=== PATIENT | male | born 1930 | race Caucasian/White ===

== ENCOUNTER → 2016-08-04 | Outpatient (CLI) | payer BC ==
[~2016-08-04] MED LIST: ACET325T96 PO; ASPI81TA28 PO; CLTP PO; ERGO1TAB12 PO; LDDP5 TD; METAMUCIL PO; POTA1080 PO; POTA10CA28 PO; ULT50X PO; VLTG EXT; WARF5TAB7 PO
== END | disposition home or self-care (01) ==
LOC: C.LAB 15:12
PROVIDERS: ATTEND Urology
DX: C61 Malignant neoplasm of prostate (principal)

== ENCOUNTER 2016-11-04 16:50 | Observation (INO) | payer BC ==
[~2016-11-04] VITALS: Ht 182.9 cm; Wt 87.5 kg
[~2016-11-04 16:50] MED LIST changes: -ACET325T96 PO; -ASPI81TA28 PO; -ERGO1TAB12 PO; +HYDROCODONE/ACETAMOPHEN 5/325MG TAB PO PRN; -LDDP5 TD; +MoRPHine SULFATE 2 MG/ML CARP IV PRN; +MoRPHine SULFATE 4 MG/ML 1 ML CARP\\VIAL IV PRN; -POTA10CA28 PO; +TRAMADOL HCL 50 MG TAB PO PRN; -ULT50X PO; -VLTG EXT
[2016-11-04] MEDS ORDERED: SODIUM CHLORIDE 0.9% 1000ML 1,000 ML IV STA (17:26)
[2016-11-04] MEDS ORDERED: FENTANYL CITRATE INJ 50 MCG/1 ML 2 ML VIAL IV STA (17:26)
[2016-11-04 18:08] LABS: BASO % 0.2 %; BASO ABS # 0.02 K/uL (0-0.2); COMPLETE YES; EOS % 3.1 %; IG% 0.2 %; LYMPH % 16.9 %; LYMPH ABS # 1.51 K/uL (1.2-3.4); MEAN CELL VOLUME 86.4 fL (80-100); MEAN CORPUSCULAR HEMOGLOBIN 29.4 pg (25-34); MEAN PLATELET VOLUME 9.4 fL (7.4-10.4); MONO % 10.1 %; NEUT % 69.5 %; PLATELET COUNT 171 K/uL (130-400); RED BLOOD COUNT 5.21 M/uL (4.7-6.1); WHITE BLOOD COUNT 8.95 K/uL (4.8-10.8)
[2016-11-04 18:09] LABS: URINE APPEARANCE CLEAR (CLEAR); URINE BILIRUBIN NEG (NEG); URINE COLOR YELLOW; URINE NITRITE NEG (NEG); URINE PH 6.5 (4.5-7.5); URINE SPECIFIC GRAVITY 1.023 (1.000-1.030); UROBILINOGEN NEG (NEG)
[2016-11-04 18:10] LABS: MANUAL MICROSCOPIC REQUIRED? NO; REVIEW REQ? NO
[2016-11-04 18:16] LABS: INR 1.8 (0.9-1.1); PARTIAL THROMBOPLASTIN RATIO 1.4
[2016-11-04] MEDS ORDERED: ASPI81TA28 PO (18:24)
[2016-11-04] MEDS ORDERED: POTA10CA28 PO (18:24)
[2016-11-04 18:25] LABS: ALT/SGPT 24 U/L (12-78); AST/SGOT 16 U/L (15-37); BLOOD UREA NITROGEN 19 mg/dl (7-18); CALCIUM 9.4 mg/dl (8.5-10.1); CARBON DIOXIDE 29 mmol/L (21-32); CHLORIDE 103 mmol/L (98-107); CREATININE 0.96 mg/dl (0.60-1.40); GLUCOSE 118 mg/dl (70-99); POTASSIUM 4.4 mmol/L (3.5-5.1); SODIUM 138 mmol/L (136-145)
[2016-11-04 18:29] LABS: ALKALINE PHOSPHATASE 98 U/L (45-117)
--- NOTE | 2016-11-04 18:33 | EMERGENCY ROOM VISIT NOTE ---
History First contact with patient: 17:22 Chief Complaint: FALL Stated Complaint: SWELLING TO LT HAND, LT SHOULDER HURTS- FALL History of Present Illness The patient is a 86 year old male who presents to the Emergency Room with complaints of fall from tripping 2 days ago. He complains of left wrist and left sided chest pain that has gotten worse since the fall. He also complains of feeling generally tired. He states he was bending over to fix something on his mower while mowing the lawn when he tripped and fell forward hitting the left side of his chest, and also hit his head. He denies loss of consciousness , headache, nausea/vomiting, hemoptysis, abdominal pain, vision changes, neck pain, numbness or weakness on one side of the body. The patient's states he has been his normal self and not confused. He does take Coumadin. He reports a mild cough, left-sided chest pain that is worse with taking a deep breath and coughing, as well as movement. He took 2 baby aspirin today for pain which did not seem to help. Review of Systems GENERAL: Denies fevers, chills, malaise, fatigue, unintentional weight changes. HEENT: Denies dizziness, visual problems, hearing loss, tinnitus. Denies difficulty swallowing or oral lesions. PULMONARY: + Cough. Denies shortness of breath, sputum production or hemoptysis. CARDIOVASCULAR: + Chest pain. Denies palpitations, dyspnea on exertion, orthopnea or peripheral edema. GASTROINTESTINAL: Denies diarrhea, constipation, nausea, vomiting, or abdominal pain. GENITOURINARY: Denies dysuria, frequency, urgency or nocturia. NEUROLOGIC: Denies history of epilepsy, CVA, TIA or chronic headaches. MUSCULOSKELETAL: Denies history of joint tenderness/swelling. SKIN: Denies rashes or lesions. PSYCHIATRIC: Denies history of depression or mental illness. ENDOCRINE: Denies history of diabetes, thyroid disorders, abnormal hair growth or sexual dysfunction. Social History Smoking Status: Former Smoker Alcohol Use: occasionally Housing Status: lives with significant other Occupation Status: unemployed Current/Historical Medications Scheduled Aspirin (Aspirin Ec), 81 MG PO DAILY Potassium Chloride (Micro-K Ext Rel), 10 MEQ PO BID Warfarin Sod (Jantoven), 5 MG PO 2XWK Warfarin Sod (Jantoven), 7.5 MG PO 5XWK [Metamucil Tab], 1 TAB PO DIRECTED Allergies Coded Allergies: Dust (Verified Allergy, Unknown, UNKNOWN, 07/10/14) Grass (Verified Allergy, Unknown, HIVES, 07/10/14) NO KNOWN DRUG ALLERGIES (Verified Allergy, Unknown, , 07/23/14) Physical Exam Vital Signs Date Time Temp Pulse Resp B/P Pulse Ox O2 Delivery O2 Flow Rate FiO2 11/04/16 20:32 79 16 134/69 91 Room Air 11/04/16 19:13 93 16 154/84 95 Room Air 11/04/16 18:51 86 11/04/16 18:02 90 20 140/83 94 Room Air 11/04/16 18:01 93 Room Air 11/04/16 16:56 37.1 111 20 132/80 97 Room Air Physical Exam CONSTITUTIONAL: No acute distress. Well appearing and well nourished. Alert and oriented X 4 with normal affect. HEENT: Normocephalic, atraumatic. Pupils equal, round and reactive to light, EOMI. TMs normal. Pharynx normal. NECK: Supple, full active range of motion without discomfort. RESPIRATORY: Diminished lung sounds bilateral bases, left greater than right. Clear to auscultation bilaterally with no wheezing, crackles, rhonchi or stridor. Equal expansion bilaterally. CARDIOVASCULAR: Regular rate and rhythm with no murmurs, rubs or gallops. Normal peripheral perfusion. No edema. CHEST WALL: Tenderness to palpation reproduces patient's pain the left anterior lateral and posterior chest wall, approximately ribs 3 through 6. No ecchymosis , no abrasions, no crepitus, no palpable deformities. GASTROINTESTINAL: Soft, nontender, nondistended. Bowel sounds present in all quadrants. MUSCULOSKELETAL: Full range of motion of all joints without discomfort. INTEGUMENTARY: No rash or other significant dermatologic conditions noted. NEUROLOGIC: Cranial nerves II-XII grossly intact. No focal neurologic deficits noted. Negative pronator drift. Normal strength and sensation, equal in all 4 extremities. Normal cerebellar function. Medical Decision & Procedures ER Provider Diagnostic Interpretation: CT SCAN OF THE BRAIN WITHOUT IV CONTRAST CLINICAL HISTORY: Fall. Head injury. COMPARISON STUDY: No priors. TECHNIQUE: Unenhanced axial CT scan of the brain is performed from the vertex to the skull base. FINDINGS: Brain parenchyma: There are age-related involutional changes noting [id number] patchy subcortical and periventricular microangiopathic change. There is no hemorrhage, mass effect, or evidence of acute territorial ischemia by CT criteria. Flores-white matter is preserved. No extra-axial fluid collection is seen. Ventricles, sulci, cisterns: Prominent secondary to involutional change. Intracranial vasculature: There is atherosclerotic calcification of the cavernous carotid and vertebral arteries. Calvarium: The skeletal structures are osteopenic. No depressed calvarial fracture is seen. Sinuses and mastoids: The visualized paranasal sinuses are clear. The mastoid air cells are well pneumatized. Orbits: The bony orbits are grossly intact. IMPRESSION: There is no hemorrhage, mass effect, or evidence of acute territorial ischemia by CT criteria. ----- CT SCAN OF THE CERVICAL SPINE CLINICAL HISTORY: Fall. COMPARISON STUDY: No priors. TECHNIQUE: CT scan of the cervical spine is performed from the skull base to the upper thoracic spine. Images are reviewed in the axial, sagittal, and coronal planes. IV contrast was not administered for this examination. FINDINGS: Skeletal structures: The skeletal structures are osteopenic. There is no evidence of fracture or subluxation involving the cervical spine. Vertebral body height and alignment are maintained. There is partial bony fusion of C2 and C3, which includes the posterior elements. The odontoid process and lateral masses are intact. The atlantoaxial articulation is preserved noting advanced productive degenerative change with bony overgrowth, subchondral cyst formation, sclerosis, and narrowing of the interval. The spinous processes appear intact. Large anterior osteophytes are seen at C6-C7. There is moderate to advanced multilevel cervical spondylosis. Uncovertebral and facet arthropathy contribute to neural foraminal narrowing at most levels. Intervertebral discs: Advanced degenerative disc space narrowing seen at C6-C7. Mild narrowing is seen at the remaining cervical levels. Central canal: Posterior disc osteophyte complexes at C3-C4, C4-C5, C5-C6, and C6-C7 likely contribute to mild acquired compromise of the central canal. Soft tissues: The prevertebral and paraspinous soft tissues are within normal limits. A subcentimeter low-attenuation nodule is noted in the right lobe of the thyroid gland. Calcification is seen in the nuchal ligament. Calvarium: The visualized calvarium at the skull base appears intact. Brain parenchyma: Partially visualized brain parenchyma the skull base is within normal limits noting age-related involutional change. Sinuses and mastoids: The visualized paranasal sinuses are clear. The mastoid air cells are well pneumatized. Lung apices: Clear as visualized. IMPRESSION: 1. There is no evidence of fracture or subluxation involving the cervical spine. 2. Osteopenia and spondylotic change as above. ----- CT SCAN OF THE CHEST WITH IV CONTRAST CLINICAL HISTORY: Fall. COMPARISON STUDY: Chest CT dated 08/22/2013. TECHNIQUE: Following the IV administration of 117 cc of Optiray 320, CT scan of the thorax was performed from the thoracic inlet to the upper abdomen. Images are reviewed in the axial, sagittal, and coronal planes. IV contrast was administered without complication. CT DOSE: 1703.53 mGy.cm FINDINGS: Thyroid: Atrophic. Thoracic aorta: There is mild atherosclerotic calcification of the thoracic aorta, which is normal in caliber and demonstrates standard 3-vessel arch anatomy. No dissection is seen. Pulmonary vasculature: The pulmonary trunk is normal in caliber. There are no filling defects identified in the central pulmonary vessels to indicate pulmonary embolus. Note that this examination was not protocoled for evaluation of the pulmonary arteries. Heart: The heart is enlarged and without pericardial effusion. The coronary arteries are densely calcified. Lungs and pleural spaces: There is no airspace consolidation or pleural effusion. Dependent atelectasis is observed. No pneumothorax is seen. The trachea and central airways are clear. Scattered calcified granulomas are identified. Mediastinum: There is no mediastinal hematoma or lymphadenopathy. Trixie: There are calcified left hilar lymph nodes. Axillae: There is no axillary lymphadenopathy. Upper abdomen: There is a small to moderate hiatal hernia. Gallstones are identified. Calcified granulomas are observed in the spleen. Skeletal structures: The skeletal structures are osteopenic. Degenerative changes noted throughout the thoracic spine. Arthritic change is also present in the shoulders and sternoclavicular joints. There are acute and nondistracted left anterolateral 3rd through 7th ribs. No additional fracture is identified. No lytic or blastic bony lesions are seen. Soft tissues: There is a mild soft tissue contusion of the left lateral chest wall. IMPRESSION: 1. There are acute and nondistracted left 3rd through 7th rib fractures with overlying soft tissue contusion. 2. No additional fracture is seen. 3. There is no airspace consolidation, pleural effusion, or pneumothorax. 4. Cardiomegaly. 5. Hiatal hernia. 6. Additional changes as above. Laboratory Results 11/04/16 17:56 Red Blood Count 5.21, Mean Corpuscular Volume 86.4, Mean Corpuscular Hemoglobin 29.4, Mean Corpuscular Hemoglobin Concent 34.0, Mean Platelet Volume 9.4, Neutrophils (%) (Auto) 69.5, Lymphocytes (%) (Auto) 16.9, Monocytes (%) (Auto) 10.1, Eosinophils (%) (Auto) 3.1, Basophils (%) (Auto) 0.2, Neutrophils # (Auto ) 6.22, Lymphocytes # (Auto) 1.51, Monocytes # (Auto) 0.90, Eosinophils # (Auto ) 0.28, Basophils # (Auto) 0.02 11/04/16 17:56 Test 11/04/16 17:50 11/04/16 17:56 Urine Color YELLOW Urine Appearance CLEAR (CLEAR) Urine pH 6.5 (4.5-7.5) Urine Specific [place] 1.023 (1.000-1.030) Urine Protein NEG (NEG) Urine Glucose (UA) NEG (NEG) Urine Ketones NEG (NEG) Urine Occult Blood NEG (NEG) Urine Nitrite NEG (NEG) Urine Bilirubin NEG (NEG) Urine Urobilinogen NEG (NEG) Urine Leukocyte Esterase NEG (NEG) White Blood Count 8.95 K/uL (4.8-10.8) Red Blood Count 5.21 M/uL (4.7-6.1) Hemoglobin 15.3 g/dL (14.0-18.0) Hematocrit 45.0 % (42-52) Mean Corpuscular Volume 86.4 fL (80-100) Mean Corpuscular Hemoglobin 29.4 pg (25-34) Mean Corpuscular Hemoglobin Concent 34.0 g/dl (32-36) Platelet Count 171 K/uL (130-400) Mean Platelet Volume 9.4 fL (7.4-10.4) Neutrophils (%) (Auto) 69.5 % Lymphocytes (%) (Auto) 16.9 % Monocytes (%) (Auto) 10.1 % Eosinophils (%) (Auto) 3.1 % Basophils (%) (Auto) 0.2 % Neutrophils # (Auto) 6.22 K/uL (1.4-6.5) Lymphocytes # (Auto) 1.51 K/uL (1.2-3.4) Monocytes # (Auto) 0.90 K/uL (0.11-0.59) Eosinophils # (Auto) 0.28 K/uL (0-0.5) Basophils # (Auto) 0.02 K/uL (0-0.2) RDW Standard Deviation 45.9 fL (36.4-46.3) RDW Coefficient of Variation 14.5 % (11.5-14.5) Immature Granulocyte % (Auto) 0.2 % Immature Granulocyte # (Auto) 0.02 K/uL (0.00-0.02) Prothrombin Time 20.0 SECONDS (9.0-12.0) Prothromb Time International Ratio 1.8 (0.9-1.1) Activated Partial Thromboplast Time 36.6 SECONDS (21.0-31.0) Partial Thromboplastin Ratio 1.4 Anion Gap 6.0 mmol/L (3-11) Est Creatinine Clear Calc Drug Dose 61.8 ml/min Estimated GFR () 83.2 Estimated GFR (Non- 71.8 BUN/Creatinine Ratio 20.0 (10-20) Calcium Level 9.4 mg/dl (8.5-10.1) Total Bilirubin 0.6 mg/dl (0.2-1) Direct Bilirubin 0.2 mg/dl (0-0.2) Aspartate Amino Transf (AST/SGOT) 16 U/L (15-37) Alanine Aminotransferase (ALT/SGPT) 24 U/L (12-78) Alkaline Phosphatase 98 U/L (45-117) Troponin I < 0.015 ng/ml (0-0.045) Total Protein 8.6 gm/dl (6.4-8.2) Albumin 3.7 gm/dl (3.4-5.0) Lipase 186 U/L (73-393) Medications Administered Medications (Trade) Dose Ordered Sig/Jose L Route Start Time Stop Time Status Last Admin Dose Admin Sodium Chloride (Nss 1000ml) 1,000 ml @ 999 mls/hr Q1H1M STAT IV 11/04/16 17:26 11/04/16 18:26 DC 11/04/16 18:12 999 MLS/HR Fentanyl Citrate (Fentanyl Inj) 50 mcg NOW STAT IV 11/04/16 17:26 11/04/16 17:35 DC 11/04/16 18:13 50 MCG Fentanyl Citrate (Fentanyl Inj) 50 mcg NOW ONCE IV 11/04/16 20:30 11/04/16 20:31 DC 11/04/16 20:29 50 MCG ECG Indication: chest pain (trauma) Rate (beats per minute): 84 Rhythm: normal sinus Medical Decision CC: Patient presenting with complaint of left-sided chest pain and left wrist pain/swelling. Interpretation of Labs: Normal WBC count, not anemic, normal platelets. No significant electrolyte abnormalities, Normal renal function, liver enzymes within normal limits. INR slightly subtherapeutic at 1.8. Negative troponin. Differential Diagnosis: Includes, but not limited to rib fractures, pulmonary contusion, pneumothorax, hemothorax, intracranial hemorrhage, spinal fracture, wrist fracture, myocardial contusion. Summary: Patient was evaluated at bedside, history of physical exam performed. Orders were placed at bedside for to evaluate for trauma. Patient is alert, fully oriented with a normal neuro exam, no acute distress. On exam, patient has palpable tenderness of the left anterior, lateral, posterior chest wall from approximately ribs 3 through 6. No crepitus, no ecchymosis. Cervical spine is nontender with normal range of motion and no pain. Abdomen is soft and nontender, lower back is nontender with no signs of trauma. Patient discussed with Dr. Torres, who agrees with my assessment and plan. Patient was reassessed, improved pain with IV fentanyl. CT results reviewed, show acute fractures of the left third through seventh ribs , correlating with patient's exam. No evidence of other traumatic injury to the chest. Head CT and C-spine CT are unremarkable, no traumatic injuries. X-ray of the left wrist shows degenerative changes, no acute fracture. Labs reviewed, slightly subtherapeutic INR. Negative troponin. EKG reviewed, normal sinus rhythm. Patient reassessed multiple times throughout ED stay, remained stable and pain improved with multiple doses of IV fentanyl. Vital signs stable, tachycardia resolved. Patient discussed with Dr. Harrison for admission, who agrees. Impression Primary Impression: Multiple rib fractures involving four or more ribs Departure Information Referrals Thiago Dobbs M.D. (PCP) Patient Instructions My [facility]
--- NOTE | 2016-11-04 18:41 | EMERGENCY ROOM VISIT NOTE ---
ED Visit Note First contact with patient: 17:22 I saw this patient in conjunction with Sarai Oconnor. I agree with her decision making and treatment plan.
--- NOTE | 2016-11-04 18:53 | DIAGNOSTIC IMAGING REPORT ---
LEFT WRIST 4 VIEWS CLINICAL HISTORY: Fall with left wrist pain and swelling. FINDINGS: 4 views of left wrist are obtained. No prior studies are available for comparison at the time of dictation. The skeletal structures are osteopenic. No acute fracture is clearly identified. There is advanced degenerative narrowing at the radiocarpal articulation with bony sclerosis present within the lunate. Large foci of cystic change are seen within the scaphoid, lunate, and distal radius. There is well-corticated bony fragmentation/overgrowth at the radial styloid. Milder degenerative change is seen involving the intercarpal, carpometacarpal, and first metacarpophalangeal joints. 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 Advanced atherosclerotic calcification is seen in the regional arteries. There is soft tissue edema around the wrist. IMPRESSION: 1. Soft tissue swelling with no clear radiographic evidence of acute fracture. Consider short-term radiographic follow-up if there is clinical concern for occult fracture. 2. Osteopenia, advanced arthritic change, and chondrocalcinosis as above. Electronically signed by: Sreekanth Tripp M.D. 11/04/2016 6:51 PM Dictated Date/Time: 11/04/2016 6:48 PM
--- NOTE | 2016-11-04 19:15 | DIAGNOSTIC IMAGING REPORT ---
CT SCAN OF THE BRAIN WITHOUT IV CONTRAST CLINICAL HISTORY: Fall. Head injury. COMPARISON STUDY: No priors. TECHNIQUE: Unenhanced axial CT scan of the brain is performed from the vertex to the skull base. FINDINGS: Brain parenchyma: There are age-related involutional changes noting [id number] patchy subcortical and periventricular microangiopathic change. There is no hemorrhage, mass effect, or evidence of acute territorial ischemia by CT criteria. Flores-white matter is preserved. No extra-axial fluid collection is seen. Ventricles, sulci, cisterns: Prominent secondary to involutional change. Intracranial vasculature: There is atherosclerotic calcification of the cavernous carotid and vertebral arteries. Calvarium: The skeletal structures are osteopenic. No depressed calvarial fracture is seen. Sinuses and mastoids: The visualized paranasal sinuses are clear. The mastoid air cells are well pneumatized. Orbits: The bony orbits are grossly intact. IMPRESSION: There is no hemorrhage, mass effect, or evidence of acute territorial ischemia by CT criteria. Electronically signed by: Sreekanth Tripp M.D. 11/04/2016 7:13 PM Dictated Date/Time: 11/04/2016 7:11 PM
--- NOTE | 2016-11-04 19:19 | DIAGNOSTIC IMAGING REPORT ---
CT SCAN OF THE CERVICAL SPINE CLINICAL HISTORY: Fall. COMPARISON STUDY: No priors. TECHNIQUE: CT scan of the cervical spine is performed from the skull base to the upper thoracic spine. Images are reviewed in the axial, sagittal, and coronal planes. IV contrast was not administered for this examination. FINDINGS: Skeletal structures: The skeletal structures are osteopenic. There is no evidence of fracture or subluxation involving the cervical spine. Vertebral body height and alignment are maintained. There is partial bony fusion of C2 and C3, which includes the posterior elements. The odontoid process and lateral masses are intact. The atlantoaxial articulation is preserved noting advanced productive degenerative change with bony overgrowth, subchondral cyst formation, sclerosis, and narrowing of the interval. The spinous processes appear intact. Large anterior osteophytes are seen at C6-C7. There is moderate to advanced multilevel cervical spondylosis. Uncovertebral and facet arthropathy contribute to neural foraminal narrowing at most levels. Intervertebral discs: Advanced degenerative disc space narrowing seen at C6-C7. Mild narrowing is seen at the remaining cervical levels. Central canal: Posterior disc osteophyte complexes at C3-C4, C4-C5, C5-C6, and C6-C7 likely contribute to mild acquired compromise of the central canal. Soft tissues: The prevertebral and paraspinous soft tissues are within normal limits. A subcentimeter low-attenuation nodule is noted in the right lobe of the thyroid gland. Calcification is seen in the nuchal ligament. Calvarium: The visualized calvarium at the skull base appears intact. Brain parenchyma: Partially visualized brain parenchyma the skull base is within normal limits noting age-related involutional change. Sinuses and mastoids: The visualized paranasal sinuses are clear. The mastoid air cells are well pneumatized. Lung apices: Clear as visualized. IMPRESSION: 1. There is no evidence of fracture or subluxation involving the cervical spine. 2. Osteopenia and spondylotic change as above. Electronically signed by: Sreekanth Tripp M.D. 11/04/2016 7:17 PM Dictated Date/Time: 11/04/2016 7:11 PM
--- NOTE | 2016-11-04 19:28 | DIAGNOSTIC IMAGING REPORT ---
CT SCAN OF THE CHEST WITH IV CONTRAST CLINICAL HISTORY: Fall. COMPARISON STUDY: Chest CT dated 08/22/2013. TECHNIQUE: Following the IV administration of 117 cc of Optiray 320, CT scan of the thorax was performed from the thoracic inlet to the upper abdomen. Images are reviewed in the axial, sagittal, and coronal planes. IV contrast was administered without complication. CT DOSE: 1703.53 mGy.cm FINDINGS: Thyroid: Atrophic. Thoracic aorta: There is mild atherosclerotic calcification of the thoracic aorta, which is normal in caliber and demonstrates standard 3-vessel arch anatomy. No dissection is seen. Pulmonary vasculature: The pulmonary trunk is normal in caliber. There are no filling defects identified in the central pulmonary vessels to indicate pulmonary embolus. Note that this examination was not protocoled for evaluation of the pulmonary arteries. Heart: The heart is enlarged and without pericardial effusion. The coronary arteries are densely calcified. Lungs and pleural spaces: There is no airspace consolidation or pleural effusion. Dependent atelectasis is observed. No pneumothorax is seen. The trachea and central airways are clear. Scattered calcified granulomas are identified. Mediastinum: There is no mediastinal hematoma or lymphadenopathy. Trixie: There are calcified left hilar lymph nodes. Axillae: There is no axillary lymphadenopathy. Upper abdomen: There is a small to moderate hiatal hernia. Gallstones are identified. Calcified granulomas are observed in the spleen. Skeletal structures: The skeletal structures are osteopenic. Degenerative changes noted throughout the thoracic spine. Arthritic change is also present in the shoulders and sternoclavicular joints. There are acute and nondistracted left anterolateral 3rd through 7th ribs. No additional fracture is identified. No lytic or blastic bony lesions are seen. Soft tissues: There is a mild soft tissue contusion of the left lateral chest wall. IMPRESSION: 1. There are acute and nondistracted left 3rd through 7th rib fractures with overlying soft tissue contusion. 2. No additional fracture is seen. 3. There is no airspace consolidation, pleural effusion, or pneumothorax. 4. Cardiomegaly. 5. Hiatal hernia. 6. Additional changes as above. Electronically signed by: Sreekanth Tripp M.D. 11/04/2016 7:27 PM Dictated Date/Time: 11/04/2016 7:20 PM
[2016-11-04] MEDS ORDERED: FENTANYL CITRATE INJ 50 MCG/1 ML 2 ML VIAL IV ONE (20:30)
[2016-11-04 22:20] VITALS: Ht 182.9 cm; Wt 87.5 kg
[2016-11-04] MEDS ORDERED: ACETAMINOPHEN 325 MG TAB PO PRN (23:15)
[2016-11-04] MEDS ORDERED: ONDANSETRON INJ 2 MG/ML 2 ML VIAL IV PRN (23:15)
--- NOTE | 2016-11-04 23:40 | History and Physical ---
History & Physical Date & Time of Service: November 04, 2016 at 23:40 Chief Complaint: Chronic Anticoagulation, Multiple Rib Fractures Primary Care Physician: Thiago Dobbs M.D. History of Present Illness Source: patient, spouse The patient is an 86-year-old male who presents to the emergency department with complaint of left sided chest pain and left wrist pain after falling while mowing the lawn 2 days ago. He reports that he had been mowing for about 2 hours at that time, both legs became generally weak, and as he went to turn with the lawnmower he lost his balance and fell on his left wrist and left side , also hitting his head. He presents to the emergency department due to persistence of the pain and to look for the cause. He reports that he's not had a change in mental status, and his who is present agrees. The left sided chest wall pain is worse with any type of physical activity. Social History Smoking Status: Never Smoker Smokeless Tobacco Use: No Alcohol Use: none Drug Use: none Marital Status: Housing status: lives with family Occupational Status: unemployed Immunizations History of Influenza Vaccine: Yes Influenza Vaccine Date: May 11, 2013 History of Tetanus Vaccine?: Unknown Tetanus Immunization Date: Jun 22, 2013 History of Pneumococcal: Yes Pneumococcal Date: Feb 28, 2009 History of Hepatitis B Vaccine: No Multi-Drug Resistant Organisms History of MDRO: No Allergies Coded Allergies: Dust (Verified Allergy, Unknown, UNKNOWN, 07/10/14) Grass (Verified Allergy, Unknown, HIVES, 07/10/14) NO KNOWN DRUG ALLERGIES (Verified Allergy, Unknown, , 07/23/14) Home Medications Scheduled Aspirin (Aspirin Ec), 81 MG PO DAILY Potassium Chloride (Micro-K Ext Rel), 10 MEQ PO BID Warfarin Sod (Jantoven), 5 MG PO 2XWK Warfarin Sod (Jantoven), 7.5 MG PO 5XWK [Metamucil Tab], 1 TAB PO DIRECTED Review of Systems The patient denies chest pain, palpitations, shortness of breath, cough, lower extremity swelling, vision change, hearing change, sore throat, fevers, chills, sweats, weight change, nausea, vomiting, abdominal pain, pelvic pain, blood in urine or stool, dysuria, urinary frequency or urgency, lightheadedness, dizziness, headache, memory loss, rash, abnormal bruising or bleeding, imbalance , focal or generalized weakness, numbness or tingling in arms or legs, arthralgias or myalgias, back or neck pain, night sweats, or allergy symptoms. The review of systems is otherwise negative other than for that already noted above, and at least 10 systems have been reviewed. Physical Exam Vital Signs Date Time Temp Pulse Resp B/P Pulse Ox O2 Delivery O2 Flow Rate FiO2 11/04/16 22:20 85 16 140/80 94 Room Air 11/04/16 22:20 Room Air 11/04/16 20:32 79 16 134/69 91 Room Air 11/04/16 19:13 93 16 154/84 95 Room Air 11/04/16 18:51 86 11/04/16 18:02 90 20 140/83 94 Room Air 11/04/16 18:01 93 Room Air 11/04/16 16:56 37.1 111 20 132/80 97 Room Air The patient is awake, well-developed and adequately nourished, alert and oriented 3, normocephalic and atraumatic, lying in bed and in no acute distress. HEENT--PERRL, EOMI, mucous membranes and oropharynx normal. Neck--supple, no JVD or bruits, thyroid normal, trachea midline, no adenopathy. Heart--normal S1 and S2, no extra beats, no murmurs, rubs or gallops. Lungs--clear bilaterally with good air movement, no respiratory distress, no accessory muscle use. Abdomen--normal bowel sounds and soft, nontender and nondistended, no hernias or masses, no organomegaly. Extremities--no cyanosis, clubbing or edema. There are good distal pulses b/l. Dermatologic--normal skin turgor, normal color, warm and dry, no abnormal lymph nodes, no rash. Neurologic--cranial nerves II through XII grossly intact, motor and sensory examination normal. Rheumatologic--tender over left third through seventh ribs. Left wrist with swelling on dorsal surface, decreased range of motion, no erythema or warmth. Psychiatric--normal affect. Diagnostics Laboratory Results Results Past 24 Hours Test 11/04/16 17:50 11/04/16 17:52 11/04/16 17:56 Range/Units Urine Color YELLOW Urine Appearance CLEAR CLEAR Urine pH 6.5 4.5-7.5 Urine Specific [place] 1.023 1.000-1.030 Urine Protein NEG NEG Urine Glucose (UA) NEG NEG Urine Ketones NEG NEG Urine Occult Blood NEG NEG Urine Nitrite NEG NEG Urine Bilirubin NEG NEG Urine Urobilinogen NEG NEG Urine Leukocyte Esterase NEG NEG Bedside Glucose 113 70-99 mg/dl White Blood Count 8.95 4.8-10.8 K/uL Red Blood Count 5.21 4.7-6.1 M/uL Hemoglobin 15.3 14.0-18.0 g/dL Hematocrit 45.0 42-52 % Mean Corpuscular Volume 86.4 80-100 fL Mean Corpuscular Hemoglobin 29.4 25-34 pg Mean Corpuscular Hemoglobin Concent 34.0 32-36 g/dl Platelet Count 171 130-400 K/uL Mean Platelet Volume 9.4 7.4-10.4 fL Neutrophils (%) (Auto) 69.5 % Lymphocytes (%) (Auto) 16.9 % Monocytes (%) (Auto) 10.1 % Eosinophils (%) (Auto) 3.1 % Basophils (%) (Auto) 0.2 % Neutrophils # (Auto) 6.22 1.4-6.5 K/uL Lymphocytes # (Auto) 1.51 1.2-3.4 K/uL Monocytes # (Auto) 0.90 0.11-0.59 K/uL Eosinophils # (Auto) 0.28 0-0.5 K/uL Basophils # (Auto) 0.02 0-0.2 K/uL RDW Standard Deviation 45.9 36.4-46.3 fL RDW Coefficient of Variation 14.5 11.5-14.5 % Immature Granulocyte % (Auto) 0.2 % Immature Granulocyte # (Auto) 0.02 0.00-0.02 K/uL Prothrombin Time 20.0 9.0-12.0 SECONDS Prothromb Time International Ratio 1.8 0.9-1.1 Activated Partial Thromboplast Time 36.6 21.0-31.0 SECONDS Partial Thromboplastin Ratio 1.4 Sodium Level 138 136-145 mmol/L Potassium Level 4.4 3.5-5.1 mmol/L Chloride Level 103 98-107 mmol/L Carbon Dioxide Level 29 21-32 mmol/L Anion Gap 6.0 3-11 mmol/L Blood Urea Nitrogen 19 7-18 mg/dl Creatinine 0.96 0.60-1.40 mg/dl Est Creatinine Clear Calc Drug Dose 61.8 ml/min Estimated GFR () 83.2 Estimated GFR (Non- 71.8 BUN/Creatinine Ratio 20.0 10-20 Random Glucose 118 70-99 mg/dl Calcium Level 9.4 8.5-10.1 mg/dl Total Bilirubin 0.6 0.2-1 mg/dl Direct Bilirubin 0.2 0-0.2 mg/dl Aspartate Amino Transf (AST/SGOT) 16 15-37 U/L Alanine Aminotransferase (ALT/SGPT) 24 12-78 U/L Alkaline Phosphatase 98 45-117 U/L Troponin I < 0.015 0-0.045 ng/ml Total Protein 8.6 6.4-8.2 gm/dl Albumin 3.7 3.4-5.0 gm/dl Lipase 186 73-393 U/L Diagnostic Radiology Patient Name: DARREN ISAAC Unit Number: [id number] Dictated: 11/04/161910 Transcribed: 11/04/161910 EV Printed Date/Time: [~ rep prt dt]/[~ rep prt tm] [~ rep ct labl] - [~ rep ct ivnm] [facility] Radiology Department [place] [id number] Dictated: 11/04/161910 Transcribed: 11/04/161910 EV Printed Date/Time: [~ rep prt dt]/[~ rep prt tm] [~ rep ct labl] - [~ rep ct ivnm] [~ rep ct add3]] CT SCAN OF THE BRAIN WITHOUT IV CONTRAST CLINICAL HISTORY: Fall. Head injury. COMPARISON STUDY: No priors. TECHNIQUE: Unenhanced axial CT scan of the brain is performed from the vertex to the skull base. FINDINGS: Brain parenchyma: There are age-related involutional changes noting [id number] patchy subcortical and periventricular microangiopathic change. There is no hemorrhage, mass effect, or evidence of acute territorial ischemia by CT criteria. Flores-white matter is preserved. No extra-axial fluid collection is seen. Ventricles, sulci, cisterns: Prominent secondary to involutional change. Intracranial vasculature: There is atherosclerotic calcification of the cavernous carotid and vertebral arteries. Calvarium: The skeletal structures are osteopenic. No depressed calvarial fracture is seen. Sinuses and mastoids: The visualized paranasal sinuses are clear. The mastoid air cells are well pneumatized. Orbits: The bony orbits are grossly intact. IMPRESSION: There is no hemorrhage, mass effect, or evidence of acute territorial ischemia by CT criteria. Electronically signed by: Sreekanth Tripp M.D. 11/04/2016 7:13 PM Dictated Date/Time: 11/04/2016 7:11 PM The status of this report is Signed. Draft = Not yet reviewed or approved by Radiologist. Signed = Reviewed and approved by Radiologist. <AttendingPhy></AttendingPhy> <FamilyPhy>Thiago Dobbs M.D.</FamilyPhy> < PrimaryPhy>Thiago Dobbs M.D.</PrimaryPhy> <UnitNumber>[id number]</UnitNumber > <VisitNumber>[id number]</VisitNumber> <PatientName>PONCHODARREN</PatientName > <DateOfBirth>1930</DateOfBirth> <Location>[facility]</Location> <ServiceDate> 11/04/16</ServiceDate> <MNE>ESINDI</MNE> <OrderingPhy>Sarai Oconnor</ OrderingPhy> <OrderingPhyMNE>f rep ord dr smith</OrderingPhyMNE> <DictatingPhyMNE> f rep dict dr smith</DictatingPhyMNE> <CCListMNE>f rep ct luis</CCListMNE> < AdmittingPhyMNE>f pt admit dr smith</AdmittingPhyMNE> <AttendingPhyMNE>f pt attend dr smith</AttendingPhyMNE> <ConsultingPhyMNE>f pt consult dr smith</ConsultingPhyMNE> <FamilyPhyMNE>f pt fam dr smith</FamilyPhyMNE> <OtherPhyMNE>f pt other dr smith</OtherPhyMNE> < PrimaryPhyMNE>f pt prim care dr smith</PrimaryPhyMNE> <ReferringPhyMNE>f pt referring dr smith</ReferringPhyMNE> Patient Name: DARREN ISAAC Unit Number: [id number] Dictated: 11/04/161919 Transcribed: 11/04/161919 EV Printed Date/Time: [~ rep prt dt]/[~ rep prt tm] [~ rep ct labl] - [~ rep ct ivnm] [facility] [place] [address] Dictated: 11/04/161919 Transcribed: 11/04/161919 EV Printed Date/Time: [~ rep prt dt]/[~ rep prt tm] [~ rep ct labl] - [~ rep ct ivnm] [~ rep ct add3]] CT SCAN OF THE CHEST WITH IV CONTRAST CLINICAL HISTORY: Fall. COMPARISON STUDY: Chest CT dated 08/22/2013. TECHNIQUE: Following the IV administration of 117 cc of Optiray 320, CT scan of the thorax was performed from the thoracic inlet to the upper abdomen. Images are reviewed in the axial, sagittal, and coronal planes. IV contrast was administered without complication. CT DOSE: 1703.53 mGy.cm FINDINGS: Thyroid: Atrophic. Thoracic aorta: There is mild atherosclerotic calcification of the thoracic aorta, which is normal in caliber and demonstrates standard 3-vessel arch anatomy. No dissection is seen. Pulmonary vasculature: The pulmonary trunk is normal in caliber. There are no filling defects identified in the central pulmonary vessels to indicate pulmonary embolus. Note that this examination was not protocoled for evaluation of the pulmonary arteries. Heart: The heart is enlarged and without pericardial effusion. The coronary arteries are densely calcified. Lungs and pleural spaces: There is no airspace consolidation or pleural effusion. Dependent atelectasis is observed. No pneumothorax is seen. The trachea and central airways are clear. Scattered calcified granulomas are identified. Mediastinum: There is no mediastinal hematoma or lymphadenopathy. Trixie: There are calcified left hilar lymph nodes. Axillae: There is no axillary lymphadenopathy. Upper abdomen: There is a small to moderate hiatal hernia. Gallstones are identified. Calcified granulomas are observed in the spleen. Skeletal structures: The skeletal structures are osteopenic. Degenerative changes noted throughout the thoracic spine. Arthritic change is also present in the shoulders and sternoclavicular joints. There are acute and nondistracted left anterolateral 3rd through 7th ribs. No additional fracture is identified. No lytic or blastic bony lesions are seen. Soft tissues: There is a mild soft tissue contusion of the left lateral chest wall. IMPRESSION: 1. There are acute and nondistracted left 3rd through 7th rib fractures with overlying soft tissue contusion. 2. No additional fracture is seen. 3. There is no airspace consolidation, pleural effusion, or pneumothorax. 4. Cardiomegaly. 5. Hiatal hernia. 6. Additional changes as above. Electronically signed by: Sreekanth Tripp M.D. 11/04/2016 7:27 PM Dictated Date/Time: 11/04/2016 7:20 PM The status of this report is Signed. Draft = Not yet reviewed or approved by Radiologist. Signed = Reviewed and approved by Radiologist. <AttendingPhy></AttendingPhy> <FamilyPhy>Thiago Dobbs M.D.</FamilyPhy> < PrimaryPhy>Thiago Dobbs M.D.</PrimaryPhy> <UnitNumber>[id number]</UnitNumber > <VisitNumber>[id number]</VisitNumber> <PatientName>DARREN ISAAC</PatientName > <DateOfBirth>1930</DateOfBirth> <Location>[facility]</Location> <ServiceDate> 11/04/16</ServiceDate> <MNE>ESINDI</MNE> <OrderingPhy>Sarai Oconnor BACKPACKERS MANAGER</ OrderingPhy> <OrderingPhyMNE>f rep ord dr smith</OrderingPhyMNE> <DictatingPhyMNE> f rep dict dr smith</DictatingPhyMNE> <CCListMNE>f rep ct luis</CCListMNE> < AdmittingPhyMNE>f pt admit dr smith</AdmittingPhyMNE> <AttendingPhyMNE>f pt attend dr smith</AttendingPhyMNE> <ConsultingPhyMNE>f pt consult dr smith</ConsultingPhyMNE> <FamilyPhyMNE>f pt fam dr smith</FamilyPhyMNE> <OtherPhyMNE>f pt other dr smith</OtherPhyMNE> < PrimaryPhyMNE>f pt prim care dr smith</PrimaryPhyMNE> <ReferringPhyMNE>f pt referring dr smith</ReferringPhyMNE> Patient Name: DARREN ISAAC Unit Number: [id number] Dictated: 11/04/161910 Transcribed: 11/04/161910 EV Printed Date/Time: [~ rep prt dt]/[~ rep prt tm] [~ rep ct labl] - [~ rep ct ivnm] [facility] [place] [place] [address] Dictated: 11/04/161910 Transcribed: 11/04/161910 EV Printed Date/Time: [~ rep prt dt]/[~ rep prt tm] [~ rep ct labl] - [~ rep ct ivnm] [~ rep ct add3]] CT SCAN OF THE CERVICAL SPINE CLINICAL HISTORY: Fall. COMPARISON STUDY: No priors. TECHNIQUE: CT scan of the cervical spine is performed from the skull base to the upper thoracic spine. Images are reviewed in the axial, sagittal, and coronal planes. IV contrast was not administered for this examination. FINDINGS: Skeletal structures: The skeletal structures are osteopenic. There is no evidence of fracture or subluxation involving the cervical spine. Vertebral body height and alignment are maintained. There is partial bony fusion of C2 and C3, which includes the posterior elements. The odontoid process and lateral masses are intact. The atlantoaxial articulation is preserved noting advanced productive degenerative change with bony overgrowth, subchondral cyst formation, sclerosis, and narrowing of the interval. The spinous processes appear intact. Large anterior osteophytes are seen at C6-C7. There is moderate to advanced multilevel cervical spondylosis. Uncovertebral and facet arthropathy contribute to neural foraminal narrowing at most levels. Intervertebral discs: Advanced degenerative disc space narrowing seen at C6-C7. Mild narrowing is seen at the remaining cervical levels. Central canal: Posterior disc osteophyte complexes at C3-C4, C4-C5, C5-C6, and C6-C7 likely contribute to mild acquired compromise of the central canal. Soft tissues: The prevertebral and paraspinous soft tissues are within normal limits. A subcentimeter low-attenuation nodule is noted in the right lobe of the thyroid gland. Calcification is seen in the nuchal ligament. Calvarium: The visualized calvarium at the skull base appears intact. Brain parenchyma: Partially visualized brain parenchyma the skull base is within normal limits noting age-related involutional change. Sinuses and mastoids: The visualized paranasal sinuses are clear. The mastoid air cells are well pneumatized. Lung apices: Clear as visualized. IMPRESSION: 1. There is no evidence of fracture or subluxation involving the cervical spine. 2. Osteopenia and spondylotic change as above. Electronically signed by: Sreekanth Tripp M.D. 11/04/2016 7:17 PM Dictated Date/Time: 11/04/2016 7:11 PM The status of this report is Signed. Draft = Not yet reviewed or approved by Radiologist. Signed = Reviewed and approved by Radiologist. <AttendingPhy></AttendingPhy> <FamilyPhy>Thiago Dobbs M.D.</FamilyPhy> < PrimaryPhy>Thiago Dobbs M.D.</PrimaryPhy> <UnitNumber>[id number]</UnitNumber > <VisitNumber>[id number]</VisitNumber> <PatientName>DARREN ISAAC</PatientName > <DateOfBirth>1930</DateOfBirth> <Location>[facility]</Location> <ServiceDate> 11/04/16</ServiceDate> <MNE>ESINDI</MNE> <OrderingPhy>Sarai Oconnor</ OrderingPhy> <OrderingPhyMNE>f rep ord dr smith</OrderingPhyMNE> <DictatingPhyMNE> f rep dict dr smith</DictatingPhyMNE> <CCListMNE>f rep ct luis</CCListMNE> < AdmittingPhyMNE>f pt admit dr smith</AdmittingPhyMNE> <AttendingPhyMNE>f pt attend dr smith</AttendingPhyMNE> <ConsultingPhyMNE>f pt consult dr smith</ConsultingPhyMNE> <FamilyPhyMNE>f pt fam dr smith</FamilyPhyMNE> <OtherPhyMNE>f pt other dr smith</OtherPhyMNE> < PrimaryPhyMNE>f pt prim care dr smith</PrimaryPhyMNE> <ReferringPhyMNE>f pt referring dr smith</ReferringPhyMNE> Patient Name: DARREN ISAAC Unit Number: [id number] Dictated: 11/04/161847 Transcribed: 11/04/161847 EV Printed Date/Time: [~ rep prt dt]/[~ rep prt tm] [~ rep ct labl] - [~ rep ct ivnm] [facility] Radiology Department [place] [id number] Dictated: 11/04/161847 Transcribed: 11/04/161847 EV Printed Date/Time: [~ rep prt dt]/[~ rep prt tm] [~ rep ct labl] - [~ rep ct ivnm] [~ rep ct add3]] LEFT WRIST 4 VIEWS CLINICAL HISTORY: Fall with left wrist pain and swelling. FINDINGS: 4 views of left wrist are obtained. No prior studies are available for comparison at the time of dictation. The skeletal structures are osteopenic. No acute fracture is clearly identified. There is advanced degenerative narrowing at the radiocarpal articulation with bony sclerosis present within the lunate. Large foci of cystic change are seen within the scaphoid, lunate, and distal radius. There is well-corticated bony fragmentation/overgrowth at the radial styloid. Milder degenerative change is seen involving the intercarpal, carpometacarpal, and first metacarpophalangeal joints. 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 Advanced atherosclerotic calcification is seen in the regional arteries. There is soft tissue edema around the wrist. IMPRESSION: 1. Soft tissue swelling with no clear radiographic evidence of acute fracture. Consider short-term radiographic follow-up if there is clinical concern for occult fracture. 2. Osteopenia, advanced arthritic change, and chondrocalcinosis as above. Electronically signed by: Sreekanth Tripp M.D. 11/04/2016 6:51 PM Dictated Date/Time: 11/04/2016 6:48 PM The status of this report is Signed. Draft = Not yet reviewed or approved by Radiologist. Signed = Reviewed and approved by Radiologist. <AttendingPhy></AttendingPhy> <FamilyPhy>Thiago Dobbs M.D.</FamilyPhy> < PrimaryPhy>Thiago Dobbs M.D.</PrimaryPhy> <UnitNumber>[id number]</UnitNumber > <VisitNumber>[id number]</VisitNumber> <PatientName>DARREN ISAAC</PatientName > <DateOfBirth>1930</DateOfBirth> <Location>[facility]</Location> <ServiceDate> 11/04/16</ServiceDate> <MNE>ESINDI</MNE> <OrderingPhy>Sarai Oconnor</ OrderingPhy> <OrderingPhyMNE>f rep ord dr smith</OrderingPhyMNE> <DictatingPhyMNE> f rep dict dr smith</DictatingPhyMNE> <CCListMNE>f rep ct luis</CCListMNE> < AdmittingPhyMNE>f pt admit dr smith</AdmittingPhyMNE> <AttendingPhyMNE>f pt attend dr smith</AttendingPhyMNE> <ConsultingPhyMNE>f pt consult dr smith</ConsultingPhyMNE> <FamilyPhyMNE>f pt fam dr smith</FamilyPhyMNE> <OtherPhyMNE>f pt other dr smith</OtherPhyMNE> < PrimaryPhyMNE>f pt prim care dr smith</PrimaryPhyMNE> <ReferringPhyMNE>f pt referring dr smith</ReferringPhyMNE> EKG EKG shows normal sinus rhythm at 84 bpm, no acute ST-T changes, and no change compared to 02/21/2014. Impression Assessment and Plan Status post fall/left third through seventh rib fractures nondisplaced/left wrist swelling and pain--patient is being admitted to the medical surgical floor for pain control. He will be placed on acetaminophen by mouth, tramadol by mouth, hydrocodone/APAP by mouth when necessary. Lidoderm patch applied to rib cage injury every morning, and Voltaren gel applied to left wrist 4 times a day. 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 PE/DVT/Chronic anticoagulation--INR on admission was 1.8. Continue current dosing of warfarin. Follow serial INR Prostate cancer--no active issues at this time. Hiatal hernia--noted on imaging studies, no symptoms at this time. Level of Care Med/Surg Advanced Directives Existing Advance Directive: No Existing Living Will: No Existing Power of Electronic Data Processing Auditor: No Resuscitation Status FULL RESUSCITATION VTE Prophylaxis VTE Risk Assessment Done? Y/N: Yes Risk Level: Moderate Given or contraindicated: Warfarin (Coumadin) Social Service Consult None Apply
[2016-11-04 23:45] VITALS: BP 126/73; PULSE 85; TEMP 37; O2SAT 94
[2016-11-05] MEDS ORDERED: IV FLUIDS COMPLETED PRN (00:45)
--- NOTE | 2016-11-05 07:27 | Hospitalist Progress Note ---
Hospitalist Progress Note Date of Service November 05, 2016. Objective Vital Signs Date Time Temp Pulse Resp B/P Pulse Ox O2 Delivery O2 Flow Rate FiO2 11/04/16 23:45 37.0 85 17 126/73 94 Room Air 11/04/16 23:45 94 Room Air 11/04/16 22:20 85 16 140/80 94 Room Air 11/04/16 22:20 Room Air 11/04/16 20:32 79 16 134/69 91 Room Air 11/04/16 19:13 93 16 154/84 95 Room Air 11/04/16 18:51 86 11/04/16 18:02 90 20 140/83 94 Room Air 11/04/16 18:01 93 Room Air 11/04/16 16:56 37.1 111 20 132/80 97 Room Air Laboratory Results Last 24 Hours Test 11/04/16 17:50 11/04/16 17:52 11/04/16 17:56 11/05/16 07:16 Urine Color YELLOW Urine Appearance CLEAR Urine pH 6.5 Urine Specific [place] 1.023 Urine Protein NEG Urine Glucose (UA) NEG Urine Ketones NEG Urine Occult Blood NEG Urine Nitrite NEG Urine Bilirubin NEG Urine Urobilinogen NEG Urine Leukocyte Esterase NEG Bedside Glucose 113 mg/dl White Blood Count 8.95 K/uL Red Blood Count 5.21 M/uL Hemoglobin 15.3 g/dL Hematocrit 45.0 % Mean Corpuscular Volume 86.4 fL Mean Corpuscular Hemoglobin 29.4 pg Mean Corpuscular Hemoglobin Concent 34.0 g/dl Platelet Count 171 K/uL Mean Platelet Volume 9.4 fL Neutrophils (%) (Auto) 69.5 % Lymphocytes (%) (Auto) 16.9 % Monocytes (%) (Auto) 10.1 % Eosinophils (%) (Auto) 3.1 % Basophils (%) (Auto) 0.2 % Neutrophils # (Auto) 6.22 K/uL Lymphocytes # (Auto) 1.51 K/uL Monocytes # (Auto) 0.90 K/uL Eosinophils # (Auto) 0.28 K/uL Basophils # (Auto) 0.02 K/uL RDW Standard Deviation 45.9 fL RDW Coefficient of Variation 14.5 % Immature Granulocyte % (Auto) 0.2 % Immature Granulocyte # (Auto) 0.02 K/uL Prothrombin Time 20.0 SECONDS Prothromb Time International Ratio 1.8 Activated Partial Thromboplast Time 36.6 SECONDS Partial Thromboplastin Ratio 1.4 Sodium Level 138 mmol/L Potassium Level 4.4 mmol/L Chloride Level 103 mmol/L Carbon Dioxide Level 29 mmol/L Anion Gap 6.0 mmol/L Blood Urea Nitrogen 19 mg/dl Creatinine 0.96 mg/dl Est Creatinine Clear Calc Drug Dose 61.8 ml/min Estimated GFR () 83.2 Estimated GFR (Non- 71.8 BUN/Creatinine Ratio 20.0 Random Glucose 118 mg/dl Calcium Level 9.4 mg/dl Total Bilirubin 0.6 mg/dl Direct Bilirubin 0.2 mg/dl Aspartate Amino Transf (AST/SGOT) 16 U/L Alanine Aminotransferase (ALT/SGPT) 24 U/L Alkaline Phosphatase 98 U/L Troponin I < 0.015 ng/ml Total Protein 8.6 gm/dl Albumin 3.7 gm/dl Lipase 186 U/L Assessment and Plan This is a 86 yo M with PMHx of cervical disc disease, mild cervical spine stenosis, 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 Hx PE/DVT -INR on admission was 1.8. Continue current dosing of warfarin. -Follow coags Prostate cancer- - Stable, no active issues at this time. Hiatal hernia - noted on imaging studies, no symptoms at this time. DVT: teds, scds, on coumadin Disposition: From home, possible discharge today.
[2016-11-05 08:03] VITALS: BP 129/76; PULSE 66; TEMP 36.9; O2SAT 94
[2016-11-05] MEDS ORDERED: ASPIRIN 81 MG ECTAB PO SCH (09:00)
[2016-11-05] MEDS ORDERED: LIDODERM (LIDOCAINE) PATCH 5% TD SCH (09:00)
[2016-11-05] MEDS ORDERED: POTASSIUM CHLORIDE 10 MEQ TABCR PO SCH (09:00)
[2016-11-05] MEDS ORDERED: DICLOFENAC SOD 1% GEL 100 GM TUBE EXT SCH (09:00)
[2016-11-05] MEDS ORDERED: LDDP5 TD (09:01)
[2016-11-05] MEDS ORDERED: ACET325T96 PO (09:01)
[2016-11-05] MEDS ORDERED: VLTG EXT (09:01)
[2016-11-05] MEDS ORDERED: ULT50X PO (09:01)
--- NOTE | 2016-11-05 09:06 | Discharge Instructions ---
Discharge Instructions Date of Service November 05, 2016. Admission Reason for Admission: Chronic Anticoagulation, Multiple Rib Fractures Discharge Discharge Diagnosis / Problem: Rib fracture, left 3-7 Discharge Goals Goal(s): Decrease discomfort, Improve function, Increase independence, Improve disease control Activity Recommendations Activity Limitations: per Instructions/Follow-up section Lifting Limitations: no more than 25 pounds, gradually increase as tolerated Exercise/Sports Limitations: rest today, gradually increase as tolerated Shower/Bathe: no limitations Driving or Machine Use: Do not drive while taking tramadol . Instructions / Follow-Up Instructions / Follow-Up You were admitted to [facility] with status post fall and left sided chest wall pain and diagnosed with left rib fractures including the 3rd-7th ribs. During your stay here you were treated with pain medication. Imaging studies which were completed include CXR, and were abnormal showing the rib fractures. A wrist xray was completed and was negative for acute fracture Medications: Continue taking tylenol every 8 hours for about 1 week, this will help with pain. You have been given a script for tramadol, this is for moderate pain, and can be used every 6 hours. Keep the lidocaine patch your left side for local pain relief. This patch must be changed once daily and a new patch applied. Continue taking all other medications as prescribed. Follow up with your Primary Care Provider within 1 week. Current Hospital Diet Patient's current hospital diet: AHA Diet (Heart Healthy) Discharge Diet Recommended Diet: AHA Diet (Heart Healthy) Pending Studies Studies pending at discharge: no Medical Emergencies . Who to Call and When: Medical Emergencies: If at any time you feel your situation is an emergency, please call 911 immediately. . Non-Emergent Contact Non-Emergency issues call your: Primary Care Provider Call Non-Emergent contact if: you have a fever, temperature is above 100.5, your pain is not controlled, your pain is worsening, your pain is unusual for you, your pain is concerning you, wound has increased pain, you have any medication questions . Past History Medical & Surgical History: (1) Multiple rib fractures involving four or more ribs (2) PE (pulmonary embolism) (3) DVT, bilateral lower limbs (4) Chronic anticoagulation . "Provider Documentation" section prepared by Pretty Roach. . VTE Core Measure Inpt VTE Proph given/why not?: Warfarin (Coumadin), T.E.D. Stockings, SCD's
[2016-11-05 09:19] VITALS: BP 129/76; PULSE 66; TEMP 36.9; O2SAT 94
--- NOTE | 2016-11-05 12:35 | Discharge Summary ---
Discharge Summary Date of Service November 05, 2016. 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 CT SCAN OF THE CHEST WITH IV CONTRAST 11/04/16 IMPRESSION: 1. There are acute and nondistracted left 3rd through 7th rib fractures with overlying soft tissue contusion. 2. No additional fracture is seen. 3. There is no airspace consolidation, pleural effusion, or pneumothorax. 4. Cardiomegaly. 5. Hiatal hernia. 6. Additional changes as above. CT SCAN OF THE CERVICAL SPINE 11/04/16 IMPRESSION: 1. There is no evidence of fracture or subluxation involving the cervical spine. 2. Osteopenia and spondylotic change as above. LEFT WRIST 4 VIEWS IMPRESSION: 1. Soft tissue swelling with no clear radiographic evidence of acute fracture. Consider short-term radiographic follow-up if there is clinical concern for occult fracture. 2. Osteopenia, advanced arthritic change, and chondrocalcinosis as above. Consultations: None Medication Reconciliation New Medications: Acetaminophen Tab (Tylenol) 325 Mg Tab 650 MG PO Q8H for 7 Days, #42 TAB Diclofenac Sod (Voltaren) 100 Appln/100 Gm Gel 1 APPLN EXT QID for 14 Days, #1 TUBE Lidocaine (Lidocaine) 1 Patch Tdsy 1 PATCH TD QAM for 14 Days, #14 PATCH Tramadol HCl (Tramadol HCl) 50 Mg Tab 50 MG PO Q6H PRN for Moderate Pain for 7 Days, #28 TAB Continued Medications: Aspirin (Aspirin Ec) 81 Mg Tab 81 MG PO DAILY Potassium Chloride (Micro-K Ext Rel) 10 Meq Capcr 10 MEQ PO BID, CAP Warfarin Sod (Jantoven) 5 Mg Tab 5 MG PO 2XWK, TAB DAILY MON AND FRI Warfarin Sod (Jantoven) 5 Mg Tab 7.5 MG PO 5XWK, TAB DAILY SUN.,WED,,SAT [Metamucil Tab] () 1 TAB PO DIRECTED Discharge Exam The patient was seen and examined this morning. Pt reports he is doing well, he pain is well controlled currently. He feels pain and soreness when he attempts to sit up in bed, but its fine while he is walking. He denies any other complaints. ROS: Constitutional: No fever, sweats or chills Eyes: No diplopia, no worsening or blurred vision ENT: normal hearing, no trouble swallowing Respiratory: No cough, sputum, dyspnea at rest or on exertion Cardiovascular: No chest pain, tightness or palpitations Abdomen: No pain, nausea, vomiting, diarrhea or constipation Musculoskeletal: No joint pain, calf pain, swelling Neurologic: No weakness, numbness/tingling, or balance problems Psychiatric: No anxiety or depression Skin: No rash or itch Physical Exam: General: awake, alert, no apparent distress, sitting up in bed eating breakfast Head: Normocephalic, atraumatic ENT: PERRL, EOMI, no pharyngeal exudate, mucous membranes moist Chest: Clear to auscultation, on room air, no adventitious breath sounds, lidocaine patch on left rib cage, no ecchymosis or abrasions Cardiac: Regular rate and rhythm, no murmur, no JVD, normal peripheral pulses, good capillary refill Abdominal: NABS x 4 quadrants, soft, nontender to palpation, no rebound, guarding or tenderness Extremities: Normal inspection, no peripheral edema or erythema, calfs nontender to palpation Psych: Normal mood and affect Neuro: AAO x 3, strength intact bilaterally and related 5/5, no motor deficits, speech is clear, no peripheral sensory deficits Hospital Course H&P per Dr. Hunter MD. History of Present Illness Source: patient, spouse The patient is an 86-year-old male who presents to the emergency department with complaint of left sided chest pain and left wrist pain after falling while mowing the lawn 2 days ago. He reports that he had been mowing for about 2 hours at that time, both legs became generally weak, and as he went to turn with the lawnmower he lost his balance and fell on his left wrist and left side , also hitting his head. He presents to the emergency department due to persistence of the pain and to look for the cause. He reports that he's not had a change in mental status, and his who is present agrees. The left sided chest wall pain is worse with any type of physical activity. Physical Exam Vital Signs Date Time Temp Pulse Resp B/P Pulse Ox O2 Delivery O2 Flow Rate FiO2 11/04/16 22:20 85 16 140/80 94 Room Air 11/04/16 22:20 Room Air 11/04/16 20:32 79 16 134/69 91 Room Air 11/04/16 19:13 93 16 154/84 95 Room Air 11/04/16 18:51 86 11/04/16 18:02 90 20 140/83 94 Room Air 11/04/16 18:01 93 Room Air 11/04/16 16:56 37.1 111 20 132/80 97 Room Air The patient is awake, well-developed and adequately nourished, alert and oriented 3, normocephalic and atraumatic, lying in bed and in no acute distress. HEENT--PERRL, EOMI, mucous membranes and oropharynx normal. Neck--supple, no JVD or bruits, thyroid normal, trachea midline, no adenopathy. Heart--normal S1 and S2, no extra beats, no murmurs, rubs or gallops. Lungs--clear bilaterally with good air movement, no respiratory distress, no accessory muscle use. Abdomen--normal bowel sounds and soft, nontender and nondistended, no hernias or masses, no organomegaly. Extremities--no cyanosis, clubbing or edema. There are good distal pulses b/l. Dermatologic--normal skin turgor, normal color, warm and dry, no abnormal lymph nodes, no rash. Neurologic--cranial nerves II through XII grossly intact, motor and sensory examination normal. Rheumatologic--tender over left third through seventh ribs. Left wrist with swelling on dorsal surface, decreased range of motion, no erythema or warmth. Psychiatric--normal affect. 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 Would recommend that the patient start a Vit D supplement. 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 Hx PE/DVT -INR on admission was 1.8. Continue current dosing of warfarin. -Follow coags Prostate cancer- - Stable, no active issues at this time. Hiatal hernia - noted on imaging studies, no symptoms at this time. DVT: teds, scds, on coumadin Disposition: From home, discharge home today. Total Time Spent: Greater than 30 minutes This includes examination of the patient, discharge planning, medication reconciliation, and communication with other providers. Discharge Instructions Please refer to the electronic Patient Visit Report (Discharge Instructions) for additional information. Follow-Up Follow up with your Primary Care Provider within 1 week. Additional Copies To Thiago Dobbs M.D.
[2016-11-05] MEDS ORDERED: WARFARIN SOD 7.5 MG TAB PO SCH (16:00)
[2016-11-06] MEDS ORDERED: ERGO1TAB12 PO (08:44)
[2016-11-06] MEDS ORDERED: WARFARIN SOD 5 MG TAB PO SCH (16:00)
== END 2016-11-05 11:50 | disposition home or self-care (01) ==
LOC: ENRESERVDT → ENRESERVTM → C.EDB 16:51 → C.MS2W 23:03
PROVIDERS: ADMIT Hospitalist; ATTEND Internal Medicine
DX: S22.42XA Multiple fractures of ribs, left side, initial encounter for closed fracture (principal); M25.432 Effusion, left wrist; W01.0XXA Fall on same level from slipping, tripping and stumbling without subsequent striking against object, initial encounter; Y93.H2 Activity, gardening and landscaping; E55.9 Vitamin D deficiency, unspecified; M50.30 Other cervical disc degeneration, unspecified cervical region; M48.02 Spinal stenosis, cervical region; K44.9 Diaphragmatic hernia without obstruction or gangrene; C61 Malignant neoplasm of prostate; Z86.711 Personal history of pulmonary embolism; Z86.718 Personal history of other venous thrombosis and embolism; Z87.891 Personal history of nicotine dependence; Z79.01 Long term (current) use of anticoagulants; Z79.82 Long term (current) use of aspirin; Z79.899 Other long term (current) drug therapy

== ENCOUNTER → 2016-11-19 | Outpatient (CLI) | payer BC ==
[~2016-11-19] MED LIST changes: +ACET325T96 PO; +ASPI81TA28 PO; -CLTP PO; +ERGO1TAB12 PO; -HYDROCODONE/ACETAMOPHEN 5/325MG TAB PO PRN; +LDDP5 TD; -MoRPHine SULFATE 2 MG/ML CARP IV PRN; -MoRPHine SULFATE 4 MG/ML 1 ML CARP\\VIAL IV PRN; -POTA1080 PO; +POTA10CA28 PO; -TRAMADOL HCL 50 MG TAB PO PRN; +ULT50X PO; +VLTG EXT
[2016-11-19 15:39] LABS: BASO % 0.5 %; BASO ABS # 0.03 K/uL (0-0.2); COMPLETE YES; EOS % 7.6 %; HEMATOCRIT 43.1 % (42-52); IG% 0.3 %; LYMPH % 26.1 %; LYMPH ABS # 1.72 K/uL (1.2-3.4); MEAN CELL VOLUME 86.7 fL (80-100); MEAN CORPUSCULAR HEMOGLOBIN 28.2 pg (25-34); MEAN CORPUSCULAR HGB CONC 32.5 g/dl (32-36); MEAN PLATELET VOLUME 9.6 fL (7.4-10.4); MONO % 6.5 %; PLATELET COUNT 197 K/uL (130-400); RED BLOOD COUNT 4.97 M/uL (4.7-6.1); WHITE BLOOD COUNT 6.58 K/uL (4.8-10.8)
[2016-11-19 15:45] LABS: URINE APPEARANCE CLEAR (CLEAR); URINE BILIRUBIN NEG (NEG); URINE COLOR YELLOW; URINE NITRITE NEG (NEG); URINE PH 5.5 (4.5-7.5); URINE SPECIFIC GRAVITY 1.025 (1.000-1.030); UROBILINOGEN NEG (NEG)
[2016-11-19 15:52] LABS: MANUAL MICROSCOPIC REQUIRED? NO; REVIEW REQ? NO
[2016-11-19 16:00] LABS: BLOOD UREA NITROGEN 21 mg/dl (7-18); BUN/CREATININE RATIO 21.4 (10-20); CARBON DIOXIDE 25 mmol/L (21-32); CHLORIDE 107 mmol/L (98-107); CREATININE 0.99 mg/dl (0.60-1.40); GLUCOSE 123 mg/dl (70-99); POTASSIUM 4.4 mmol/L (3.5-5.1); SODIUM 139 mmol/L (136-145)
[2016-11-19 16:01] LABS: CHOLESTEROL 158 mg/dl (0-200)
[2016-11-19 16:02] LABS: CALCIUM 8.9 mg/dl (8.5-10.1)
[2016-11-20 06:12] LABS: ESTIMATED AVERAGE GLUCOSE 128 mg/dl; HA1C FLAG Normal (Normal)
== END | disposition home or self-care (01) ==
LOC: C.LAB1850 14:25
PROVIDERS: ATTEND Internal Medicine
DX: C61 Malignant neoplasm of prostate (principal); R73.9 Hyperglycemia, unspecified

== ENCOUNTER → 2017-01-19 | Outpatient (CLI) | payer BC | END | disposition home or self-care (01) | LOC: C.LAB 13:38 | PROVIDERS: ATTEND Urology | DX: C61 Malignant neoplasm of prostate (principal) ==

== ENCOUNTER → 2017-08-20 | Outpatient (CLI) | payer BC ==
[~2017-08-20] MED LIST changes: +ACET-1693 PO; -ACET325T96 PO
== END | disposition home or self-care (01) ==
LOC: C.LAB 14:21
PROVIDERS: ATTEND Urology
DX: C61 Malignant neoplasm of prostate (principal)